=== PATIENT | male | born 1995 | race Caucasian/White ===

== ENCOUNTER 2017-09-12 23:50 | Emergency (ER) | payer MEDICAID ==
[2017-09-13] MEDS ORDERED: LORazepam 2 MG/ML INJ ONE
[2017-09-13] MEDS ORDERED: LORazepam 2 MG/ML INJ IM ONE (00:10)
[2017-09-13] MEDS ORDERED: HALOPERIDOL LACT 5 MG/ML INJ IM ONE (00:10)
[2017-09-13] MEDS ORDERED: HALOPERIDOL LACT 5 MG/ML INJ ONE ×2 (00:11)
[2017-09-13] MEDS ORDERED: NS 1,000 ML IV ONE ×2 (00:16)
[2017-09-13 00:31] LABS: CREATINE KINASE 164 IU/L (0-224)
[2017-09-13 00:51] LABS: PLATELET COUNT 322 10^3/uL (150-400)
[2017-09-13] MEDS ORDERED: MIDAZOLAM 2 MG/2 ML VIAL IVP ONE (00:52)
[2017-09-13] MEDS ORDERED: MIDAZOLAM 10 MG/2 ML VIAL ONE (00:53)
--- NOTE | 2017-09-13 00:58 | EDPHY ---
H & P Stated Complaint: LSD, Esctasy - Personal History Current Tetanus Diphtheria and Acellular Pertussis (TDAP): Unsure - Medical/Surgical History Hx Asthma: No Hx Chronic Respiratory Disease: No Hx Diabetes: No Hx Cardiac Disease: No Hx Renal Disease: No Hx Cirrhosis: No Hx Alcoholism: No Hx HIV/AIDS: No Hx Splenectomy or Spleen Trauma: No Other PMH: denies - Social History Smoking Status: Current every day smoker HPI/ROS: Chief complaint: Altered mental status, high on drugs History of present illness: This is a 22-year-old male brought to the emergency department by EMS after his friends called 911 as he was acting inappropriately. Patient reportedly took multiple hits of ecstasy as well as possibly LSD. He has been acting inappropriately, excited, agitated and combative. I am unable to converse with him given his level of consciousness. Review of systems: Unable to obtain secondary to level of consciousness (Danny Horn) - Physical Exam Exam: General Appearance: Alert, uncooperative, speaking nonsensically. Eyes: Pupils equal and round no pallor or injection. ENT, Mouth: Mucous membranes moist. Respiratory: There are no retractions, lungs are clear to auscultation. Cardiovascular: Regular rate and rhythm. Gastrointestinal: Abdomen is soft and non tender, no masses, bowel sounds normal. Neurological: Alert, purposeful movement Skin: Warm and dry, no rashes. Musculoskeletal: Neck is supple non tender. Extremities are symmetrical, full range of motion. Psychiatric: Patient is agitated and somewhat combative. (Danny Horn) Constitutional: Initial Vital Signs Temperature (C) 36.5 C 09/12/17 23:52 Heart Rate 89 09/12/17 23:52 Respiratory Rate 20 09/12/17 23:52 Blood Pressure 116/79 09/12/17 23:52 O2 Sat (%) 97 09/12/17 23:52 O2 Delivery Mode Room Air O2 (L/minute) 5 Allergies/Adverse Reactions: iodine Allergy (Verified 04/07/15 10:20) Home Medications: Medication Instructions Recorded NK [No Known Home Meds] 04/07/15 Medical Decision Making ED Course/Re-evaluation: Patient seen in conjunction with my secondary supervising physician Dr. Kirt Camarena. Patient presents to the emergency department after his friends called as he become overly agitated and somewhat combative using ecstasy and LSD. Patient was agitated and combative here in the emergency room. Unable to converse with him given level of agitation. He was given Haldol and Ativan although remained agitated and combative subsequently given Versed. He had to be restrained for his own safety as well as staff safety. He will have to be observed until he keyana up. Care of patient will be turned over to my attending physician Dr. Kirt Camarena at end of shift. (Danny Horn) 0349AM: Patient re-evaluated he is now acutely agitated again screaming. Thrashing around in bed. He is being held down by security at this time for his safety. I have ordered him 10 mg IM Zyprexa to help sedate him again for his safety. 0554: Blood pressures were noted to be slightly soft here while in the emergency room however he was lying on his side with these were taken. His current blood pressure this time is 101/88. He sitting up. 0700AM: Patient signed over to Dr. Rosas at 7am shift change. Pending sobriety. Once Sober, he can be re-evaluated most likely discharge. (Kirt Camarena) Differential Diagnosis: Included but not limited to alcohol intoxication, drug abuse, excited delirium, hypoglycemia (Danny Horn) 0545: After 10 mg IM Zyprexa patient is resting comfortably. Sleeping. ( Kirt Camarena) Other Provider: Care assumed at 6:30 a.m. With plan for discharge when mental status normalizes. Clinical impression at this time is altered mental status secondary to drug ingestion, not attempt at self-harm or suicide. 1244: Awake, ambulatory, no medical complaints. Says he cut his left volar forearm 2 days ago when he was emotional but denies suicidal intent then, or now. Denies overdose. Non-suturable at this time. Does not have surrounding redness or active bleeding or cellulitis. Normal motor sensory and vascular in the left hand. Stable for discharge, police are here to take him into custody. Fluent speech. Not agitated anymore. Denies other medical conditions. (Luis Carlos Rosas) - Data Points Laboratory Results: Laboratory Results 09/13/17 00:05 09/13/17 00:05 Medications Given: Discontinued Medications Haloperidol Lactate (Haldol Injection) 10 mg IM EDNOW ONE Stop: 09/13/17 00:11 Last Admin: 09/13/17 00:10 Dose: 10 mg Sodium Chloride (Ns) 1,000 mls @ 0 mls/hr IV EDNOW ONE; Wide Open PRN Reason: Protocol Stop: 09/13/17 00:17 Last Admin: 09/13/17 00:17 Dose: 1,000 mls Sodium Chloride (Ns) 1,000 mls @ 0 mls/hr IV EDNOW ONE; Wide Open PRN Reason: Protocol Stop: 09/13/17 00:17 Last Admin: 09/13/17 00:30 Dose: 1,000 mls Lorazepam (Ativan Injection) 2 mg IM EDNOW ONE Stop: 09/13/17 00:11 Last Admin: 09/13/17 00:10 Dose: 2 mg Midazolam HCl (Versed) 5 mg IVP EDNOW ONE Stop: 09/13/17 00:53 Last Admin: 09/13/17 00:52 Dose: 5 mg Olanzapine (Zyprexa Im Injection) 10 mg IM EDNOW ONE Stop: 09/13/17 03:50 Last Admin: 09/13/17 03:50 Dose: 10 mg Departure - Departure Disposition: Home, Routine, Self-Care Clinical Impression: Polysubstance abuse Abrasion of left arm Qualifiers: Encounter type: initial encounter Qualified Code(s): S40.812A - Abrasion of left upper arm, initial encounter Condition: Good Instructions: Polysubstance Abuse (ED) Additional Instructions: Follow-up with a primary care doctor for recheck If symptoms worsen or new symptoms develop return to the emergency room for recheck Referrals: [facility],. [Clinic] - As per Instructions
[2017-09-13] MEDS ORDERED: OLANZapine 10 MG/2 ML VIAL ONE (03:49)
[2017-09-13] MEDS ORDERED: OLANZapine 10 MG/2 ML VIAL IM ONE (03:49)
[2017-09-13 04:15] VITALS: TEMP 97.2
[2017-09-13 07:46] VITALS: RESP 16
[2017-09-13 08:56] VITALS: O2SAT 96
[2017-09-13 12:56] VITALS: BP 115/53; PULSE 68
== END 2017-09-13 12:58 | disposition home or self-care (01) ==
LOC: EDUNIT#
DX: S40.812A Abrasion of left upper arm, initial encounter (principal); F19.10 Other psychoactive substance abuse, uncomplicated; F17.200 Nicotine dependence, unspecified, uncomplicated; E86.9 Volume depletion, unspecified; X58.XXXA Exposure to other specified factors, initial encounter; Y93.89 Activity, other specified
CPT/HCPCS: 96374; J1630; J2060; J2250

== ENCOUNTER 2018-08-04 17:19 | Emergency (ER) | payer MEDICAID ==
[2018-08-04] MEDS ORDERED: IBUPROFEN 600 MG TAB PO ONE (17:29)
[2018-08-04] MEDS ORDERED: HYDROCODONE/APAP 5/325 TAB PO ONE (18:40)
--- NOTE | 2018-08-04 18:43 | EDPHY ---
General Time Seen by Provider: 08/04/18 17:43 Narrative: CLINICAL IMPRESSION: Closed, left 5th metatarsal fracture ASSESSMENT/PLAN: 23-year-old male presents to the emergency department with acute left foot pain after he fell off his skateboard earlier today. Patient is unable to ambulate. He has an intact neurovascular exam, no lower leg, knee pain, or ankle pain. X-ray findings consistent with a closed fracture of the base of the left 5th metatarsal. Patient was placed in a posterior short-leg splint and provided crutches. Orthopedic referral given, rice treatment discussed, pain meds prescribed, warning signs return to ED sooner outlined and discharge. DIFFERENTIAL DX: Differential includes but not limited to acute fracture, strain/sprain, joint dislocation, soft tissue contusion ED PROCEDURES: Procedure: Splint placement. A posterior fiberglass short-leg splint was applied to left leg by automotive glass technician, supervised by myself. Crutches provided. After application of the splint I returned and re-examined the patient. The splint was adequately immobilizing the joint and distal to the splint the patient's circulation and sensation was intact. ED COURSE: X-ray results discussed with the patient and also showed him images CHIEF COMPLAINT: Left foot and ankle pain HPI: 23-year-old otherwise healthy male presents to the emergency department with acute left foot pain. Patient reports [place] he [place] wrong on his foot rolling the foot. He is now unable to ambulate on the foot. He reports having broken this foot before but does not have hardware placed. No reported numbness or loss of sensation. No open wounds. No ankle, lower leg or knee pain. He has not taken anything for pain PAST MEDICAL HISTORY: None reported, see nurse triage notes Pertinent Past Surgical History: None reported Social History: Otherwise healthy, see nurse triage notes REVIEW OF SYSTEMS: All other systems negative Constitutional: No fever, no chills Musculoskeletal: No deformity, + joint pain Skin: No rashes, color change or open wounds. Neurological: No sensory loss or weakness. PHYSICAL EXAM: General Appearance: Alert, oriented, appropriate for age, cooperative, NAD, well hydrated, non-toxic appearing, VSS, no hypoxia. Neurological: Alert and oriented x 3, normal sensation and strength of extremities Skin: Warm, dry, no rashes, no nodules on palpation. Musculoskeletal: Swelling noted over the 4th and 5th metatarsals, dorsal surface of the left foot. Reproducible tenderness to the base of the 5th metatarsal. No open wounds. Distal neurovascular exam intact. No reproducible pain to the medial or lateral malleolus and no ankle instability MEDICAL DECISION MAKING: Patient was seen independently. Secondary supervising physician at time of evaluation was Dr. Wooten. Diagnosis: Closed, left, 5th metatarsal fracture. New, requires workup Summary: See assessment and plan for summary of ED visit Independent visualization of images, tracing, or specimens yes. Decision to obtain medical records or history from someone other than the patient: No Review / Summarize previous medical records: None available Discussed patient with another provider: No Patient Progress: Improved. - History Smoking Status: Current every day smoker - Objective Vital Signs: Initial Vital Signs Temperature (C) 37.2 C 08/04/18 17:23 Heart Rate 98 08/04/18 17:23 Respiratory Rate 18 08/04/18 17:23 Blood Pressure 126/71 H 08/04/18 17:23 O2 Sat (%) 96 08/04/18 17:23 O2 Delivery Mode Room Air Allergies/Adverse Reactions: iodine Allergy (Verified 08/04/18 17:22) Home Medications: Medication Instructions Recorded Hydrocodone/APAP 5/325 [[place] 1 - 2 tab PO Q4H PRN #10 tab 08/04/18 5/325 (*)] Medications Given: Discontinued Medications Hydrocodone Bitart/Acetaminophen ([place] 5/325) 2 tab PO EDNOW ONE Stop: 08/04/18 18:41 Last Admin: 08/04/18 18:54 Dose: 2 tab Ibuprofen (Motrin) 600 mg PO EDNOW ONE Stop: 08/04/18 17:30 Last Admin: 08/04/18 17:31 Dose: 600 mg Departure - Departure Disposition: Home, Routine, Self-Care Clinical Impression: Metatarsal fracture Condition: Good Instructions: Foot Fracture in Adults (ED) Additional Instructions: DISCHARGE INSTRUCTIONS FROM YOUR DOCTOR Thank you for visiting our emergency department today. Please keep in mind that discharge from the emergency department does not mean that there is nothing wrong - it simply means that we have not identified an emergency condition that requires further evaluation or treatment in the hospital. You should always plan to follow up with primary care for re-evaluation of your condition in the next 2-3 days. If you have been referred to a specialist, please call as soon as possible (today or tomorrow) to schedule your follow up appointment at the appropriate time. YOU HAVE A FRACTURE OF THE LEFT 5TH METATARSAL BONE. THIS WILL NEED ORTHOPEDIC EVALUATION. A REFERRAL WAS GIVEN. PLEASE DO NOT BARE WEIGHT UNTIL YOU SEE ORTHOPEDICS. REST AND ELEVATE THE AFFECTED EXTREMITY MUCH POSSIBLE. ICE THE AFFECTED AREAS 20 MIN ON, 20 MIN OFF FOR THE NEXT SEVERAL DAYS. PLEASE USE TYLENOL OR IBUPROFEN OVER THE COUNTER IN APPROPRIATE DOSES OUTLINED ON YOUR DISCHARGE PAPERS. TAKE IBUPROFEN WITH FOOD AND A LARGE GLASS OF WATER. DO NOT DRIVE OR DRINK ALCOHOL WHILE TAKING NARCOTIC PAIN MEDICATION. PLEASE BE AWARE, NARCOTICS CAN CAUSE CONSTIPATION, LETHARGY, AND INCREASE YOUR RISK OF FALLING. DO NOT TAKE TYLENOL AT THE SAME TIME VICODIN OR PERCOCET. RETURN TO THE EMERGENCY ROOM FOR WORSENING PAIN, LOSS OF SENSATION TO THE FOOT OR TOES, FEVER , OR ANY OTHER CONCERNS People present with illnesses and injuries in different ways, and it is always possible that we have missed something. You may always return for re-evaluation if symptoms worsen or if they are not improving or if you develop new/different symptoms. Again, thank you for choosing our emergency department. We hope that you feel better. Referrals: NONE *PRIMARY CARE P,. [Primary Care Provider] - As per Instructions Tony Pelletier MD [Medical Doctor] - As per Instructions Stand Alone Forms: Work Excuse Prescriptions: Hydrocodone/APAP 5/325 [[place] 5/325 (*)] 1 - 2 tab PO Q4H PRN #10 tab PRN Reason: Pain, Moderate
[2018-08-04] MEDS ORDERED: HYDROCODONE/APAP 10/325 TAB ONE (18:49)
[2018-08-04] MEDS ORDERED: HYDROCODONE/APAP 5/325 TAB ONE (18:54)
[2018-08-04 19:22] VITALS: BP 118/79
== END 2018-08-04 19:20 | disposition home or self-care (01) ==
PROC: 2W3RX1Z Immobilization of Left Lower Leg using Splint (ICD-10-PCS; principal; 2018-08-04)
DX: S92.352A Displaced fracture of fifth metatarsal bone, left foot, initial encounter for closed fracture (principal); V00.131A Fall from skateboard, initial encounter; Y93.51 Activity, roller skating (inline) and skateboarding; Y92.9 Unspecified place or not applicable; Y99.9 Unspecified external cause status